=== PATIENT | male | born 1965 | race Caucasian/White ===

== ENCOUNTER 2018-11-30 08:51 | Day surgery (SDC) | payer BC ==
[2018-11-30] MEDS ORDERED: Lactated Ringers 1,000 ML IV SCH ×2 (09:00→12:15)
--- NOTE | 2018-11-30 09:34 | PCM.PREANE ---
Preanesthetic Assessment - Anesthesia/Transfusion/Family Hx Anesthesia History: Prior Anesthesia Without Reaction Family History of Anesthesia Reaction: No Transfusion History: No Prior Transfusion(s) Intubation History: Unknown - Review of Systems General: No Symptoms Pulmonary: No Symptoms Cardiovascular: No Symptoms Gastrointestinal: No Symptoms, Other (strong family h/o colon cancer) Neurological: No Symptoms Other: Reports: None - Physical Assessment NPO Status Date: 11/29/18 NPO Status Time: 21:00 O2 Sat by Pulse Oximetry: 97 Respiratory Rate: 16 Vital Signs: Last Vital Signs Temp 36.2 C 11/30/18 09:20 Pulse 71 11/30/18 09:20 Resp 16 11/30/18 09:20 BP 126/81 11/30/18 09:20 Pulse Ox 97 11/30/18 09:20 Height: 1.65 m Weight: 96.162 kg ASA Class: 2 Mental Status: Alert & Oriented x3 Airway Class: Mallampati = 2 Dentition: Reports: Normal Dentition, Bridge (fixed x 3 teeth upper front) Thyro-Mental Finger Breadths: 3 Mouth Opening Finger Breadths: 3 ROM/Head Extension: Full Lungs: Clear to Auscultation, Normal Respiratory Effort Cardiovascular: Regular Rate, Regular Rhythm - Allergies Allergies/Adverse Reactions: Allergies Allergy/AdvReac Type Severity Reaction Status Date / Time levofloxacin [From Levaquin] Allergy Rash Verified 11/27/18 10:31 Penicillins Allergy Rash Verified 11/27/18 10:31 - Blood Blood Available: No - Anesthesia Plan Pre-Op Medication Ordered: None - Acknowledgements Anesthesia Type Planned: MAC Pt an Appropriate Candidate for the Planned Anesthesia: Yes Alternatives and Risks of Anesthesia Discussed w Pt/Guardian: Yes Pt/Guardian Understands and Agrees with Anesthesia Plan: Yes PreAnesthesia Questionnaire HEENT History: Reports: Other (See Below) Other HEENT History: wears glasses Cardiovascular History: Reports: High Cholesterol, Other (See Below) (h/o HTN, not since bariatric surgery and weight loss) Respiratory History: Reports: Asthma, COPD, Sleep Apnea Other Respiratory History: uses CPAP- has not used a rescue inhaler for 4 years Gastrointestinal History: Reports: GERD, Hiatal Hernia Musculoskeletal History: Reports: Fracture Other Musculoskeletal History: hx of fx left hand and 2 fingers Endocrine/Metabolic History: Reports: Hypothyroidism, Obesity/BMI 30+ Dermatologic History: Reports: Eczema - Past Surgical History HEENT Surgical History: Reports: Naso-Sinus Surgery GI Surgical History: Reports: Appendectomy, Bariatric Procedure, Colonoscopy, Other (See Below) Other GI Surgeries/Procedures: Laparoscopic Hiatal Hernia repair Musculoskeletal Surgical History: Reports: Other (See Below) Other Musculoskeletal Surgeries/Procedures:: removal of Hemangiomas from right hand - SUBSTANCE USE Smoking Status *Q: Current Every Day Smoker Tobacco Use Within Last Twelve Months: Cigarettes Recreational Drug Use History: No - HOME MEDS Home Medications: Home Meds Levothyroxine Sodium [Synthroid] 137 mcg PO DAILY 09/01/15 [History] Lovastatin 20 mg PO DAILY 09/01/15 [History] Montelukast [Singulair] 10 mg PO DAILY 09/01/15 [History] Cyanocobalamin (Vitamin B12) [Vitamin B12] 500 mcg PO DAILY 11/27/18 [History] Multivitamin [Multi-Vitamin Daily] 1 tab PO DAILY 11/27/18 [History] Pantoprazole Sodium [Protonix] 40 mg PO DAILY 11/27/18 [History] - CURRENT (IN HOUSE) MEDS Current Meds: Current Medications Lactated Ringer's (Ringers, Lactated) 1,000 mls @ 125 mls/hr IV ASDIRECTED [facility] Last Admin: 11/30/18 09:10 Dose: 125 mls/hr
[2018-11-30] MEDS ORDERED: fentaNYL 100 MCG/2 ML SDV ONE (11:12)
[2018-11-30] MEDS ORDERED: Lidocaine 2% 5 ML SDV ONE (11:12)
[2018-11-30] MEDS ORDERED: Midazolam 1 MG/ML 2 ML SDV ONE (11:12)
[2018-11-30] MEDS ORDERED: Propofol 200 MG/20 ML SDV ONE ×2 (11:13→11:46)
--- NOTE | 2018-11-30 12:12 | PCM.OPNOTE ---
- General Post-Op/Procedure Note Date of Surgery/Procedure: 11/30/18 Operative Procedure(s): Colonoscopy with cold sigmoid colon polypectomy Pre Op Diagnosis: Intermittent rectal bleeding. Family history of colon cancer. Post-Op Diagnosis: Sigmoid polyp Anesthesia Technique: MAC (ASA II) Primary Surgeon: Dewayne Blank Condition: Good Free Text/Narrative:: DICTATION [id number] CPT CODE [id number]
--- NOTE | 2018-11-30 12:25 | OR ---
SURGEON: Dewayne Blank M.D. DATE OF PROCEDURE: 11/30/2018 OPERATION PERFORMED: Colonoscopy with cold sigmoid colon polypectomy. ANESTHESIA: MAC. ASA CLASSIFICATION: II. PREOPERATIVE DIAGNOSES: 1. Intermittent rectal bleeding. 2. Family history of colon cancer. POSTOPERATIVE DIAGNOSIS: Small sigmoid polyp. DESCRIPTION OF PROCEDURE: The patient was taken to the endoscopy room, positioned on the endoscopy table in the left lateral decubitus position. Time-out was called for appropriate identification of the patient and procedure. Monitored anesthesia care was provided. The colonoscope was inserted into the rectum and advanced with minimal difficulty to the cecum where the colonoscope was retroflexed to visualize the ascending colon from below. The colonoscope was then straightened and slowly withdrawn. The cecum, ascending colon, hepatic flexure, transverse colon, splenic flexure, and descending colon were very well visualized. No tumors, polyps, diverticula, or angiodysplastic changes were noted. One small polyp was encountered in the sigmoid colon and removed with cold biopsy forceps. No sigmoid diverticulosis was noted. Once the colonoscope was withdrawn to the rectum, it was retroflexed to visualize the anal orifice from above. No tumors, polyps, or hemorrhoids were noted. The colonoscope was straightened, the rectum aspirated, and the colonoscope removed. The patient tolerated the procedure well and was taken to recovery room in stable condition. BRE PLATA /[id number]
[2018-11-30 12:34] VITALS: BP 116/84
== END 2018-11-30 12:55 | disposition home or self-care (01) ==
LOC: MW.SDS 08:51
PROVIDERS: ATTEND Surgery
DX: K63.5 Polyp of colon (principal); I10 Essential (primary) hypertension; E78.00 Pure hypercholesterolemia, unspecified; E03.9 Hypothyroidism, unspecified; J44.9 Chronic obstructive pulmonary disease, unspecified; F17.210 Nicotine dependence, cigarettes, uncomplicated; Z88.1 Allergy status to other antibiotic agents; Z88.0 Allergy status to penicillin; Z99.89 Dependence on other enabling machines and devices; Z80.0 Family history of malignant neoplasm of digestive organs; Z79.899 Other long term (current) drug therapy
CPT/HCPCS: 45380; J2001; J2250; J2704; J3010; J7120; 88305

== ENCOUNTER 2023-10-24 09:51 | Day surgery (SDC) | payer BC ==
[~2023-10-24 09:51] MED LIST: Lactated Ringers 1,000 ML IV SCH; Sodium Chloride 0.9% 10 ML Syringe FLUSH PRN; Sodium Chloride 0.9% 2.5 ML Syringe FLUSH PRN; Sodium Chloride 0.9% 20 ML SDV IV PRN
[2023-10-24] MEDS ORDERED: propofoL 50 ML ONE (10:36)
[2023-10-24] MEDS ORDERED: Propofol 200 MG/20 ML SDV ONE (11:58)
[2023-10-24] MEDS ORDERED: dexmedeTOMIDine HCl 200 MCG/2 ML SDV ONE (12:26)
[2023-10-24 14:08] VITALS: BP 99/70; PULSE 75
== END 2023-10-24 13:07 | disposition home or self-care (01) ==
LOC: MW.SDS 09:51
PROVIDERS: ATTEND Surgery
DX: Z12.11 Encounter for screening for malignant neoplasm of colon (principal); D12.0 Benign neoplasm of cecum; D12.3 Benign neoplasm of transverse colon; K63.5 Polyp of colon; D72.19 Other eosinophilia; K44.9 Diaphragmatic hernia without obstruction or gangrene; K21.9 Gastro-esophageal reflux disease without esophagitis; I10 Essential (primary) hypertension; J44.9 Chronic obstructive pulmonary disease, unspecified; E03.9 Hypothyroidism, unspecified; G47.30 Sleep apnea, unspecified; F17.210 Nicotine dependence, cigarettes, uncomplicated; Z79.890 Hormone replacement therapy; Z79.899 Other long term (current) drug therapy; Z88.0 Allergy status to penicillin
CPT/HCPCS: 43239; 45380; J2704; J7120; 00813; J3490